=== PATIENT | female | born 1975 | race Caucasian/White ===

== ENCOUNTER 2023-08-31 12:31 | Outpatient (CLI) | payer OTHER, SELFPAY ==
--- NOTE | ~2023-08-31 | CT_ITS ---
EXAMINATION: CT abdomen pelvis wo con DATE: 08/31/2023 13:02 INDICATION: Abnormal ultrasound of kidney. Right upper quadrant abdominal pain. Right flank pain. TECHNIQUE: Computed tomography (CT) of the abdomen and pelvis was performed without intravenous contr ast. Automated exposure control and iterative reconstruction technique were employed. The dose-length product was 1540.37 mGy-cm. COMPARISON: None. FINDINGS: The visualized portions of the lung bases demonstrate minimal atelectasis. No pleural effus ion. The heart size is normal. No pericardial effusion. The liver, gallbladder, spleen, pancreas, and adrenal glands are normal. There is a 3 mm stone in right kidney. There is a 5 mm stone in left kidn ey. There is diverticulosis of the colon without evidence of diverticulitis. There are no dilated loo ps of bowel. The appendix is normal. There are no pathologically enlarged lymph nodes. There is no fr ee intraperitoneal fluid. There is mild thoracic and lumbar spondylosis. IMPRESSION: 1. Nonobstructing bilateral kidney stones. Reviewed, dictated and finalized at location E. TION COORDINATOR
== END 2023-08-31 12:32 | disposition home or self-care (01) ==
LOC: ANHIMG 12:36
PROVIDERS: Visit Provider Physician Assistant
DX: R10.9 Unspecified abdominal pain (principal); R93.429 Abnormal radiologic findings on diagnostic imaging of unspecified kidney; N20.0 Calculus of kidney
CPT/HCPCS: 74176